=== PATIENT | female | born 1970 | race Caucasian/White ===

== ENCOUNTER → 2017-04-02 | Day surgery (SDC) | payer OTHER | END | disposition home or self-care (01) | LOC: FAS 07:16 | DX: N93.8 Other specified abnormal uterine and vaginal bleeding (principal); N89.7 Hematocolpos; D25.9 Leiomyoma of uterus, unspecified; Z87.891 Personal history of nicotine dependence; Z88.2 Allergy status to sulfonamides; Z91.09 Other allergy status, other than to drugs and biological substances | CPT/HCPCS: 84703; 88305; J1170; J1885; J2405; J2704; J3010 ==